=== PATIENT | male | born 2000 | race African-American/Black ===

== ENCOUNTER 2019-10-23 13:23 | Emergency (ER) | payer OTHER ==
[~2019-10-23] VITALS: Ht 185.4 cm; Wt 70.0 kg
[2019-10-23 13:35] VITALS: BP 126/62
[2019-10-23] MEDS ORDERED: KETOROLAC 60 MG/2 ML VIAL. IM ONE (13:45)
[2019-10-23] MEDS ORDERED: NAPR-514 PO (13:49)
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
== END 2019-10-23 14:07 | disposition home or self-care (01) ==
LOC: ER 13:23
DX: S43.402A Unspecified sprain of left shoulder joint, initial encounter (principal); V43.52XA Car driver injured in collision with other type car in traffic accident, initial encounter; Y92.488 Other paved roadways as the place of occurrence of the external cause; Y93.89 Activity, other specified; Y99.8 Other external cause status
CPT/HCPCS: 96372; 99283; J1885; A4565